=== PATIENT | male | born 1950 | race Two or more races ===

== ENCOUNTER 2016-11-16 13:31 | Day surgery (SDC) | payer OTHER ==
[~2016-11-16] VITALS: Ht 185.4 cm; Wt 82.2 kg
[~2016-11-16 13:31] MED LIST: IBUPROFEN PO
[2016-11-16 14:07] VITALS: Ht 185.4 cm; Wt 82.2 kg
[2016-11-16] MEDS ORDERED: LIDOCAINE 2% (SDV) 5 ML INJ ONE (14:53)
[2016-11-16] MEDS ORDERED: PROPOFOL 40 ML ONE (14:53)
[2016-11-16 15:28] VITALS: BP 136/80; PULSE 74; RESP 18
--- NOTE | 2016-11-16 16:26 | OPPN ---
Date/Time of Note Date/Time of Note DATE: 11/16/16 TIME: 16:25 Operative Report Preoperative Diagnosis Screening Postoperative Diagnosis Sigmoid colon polyps Internal hemorrhoids Operation/Procedure Performed Colonoscopy and biopsy Surgeon see signature line office support assistant None Anesthesia: MAC Estimated blood loss: none Transfusion Required none Specimen Sigmoid polyps Grafts/Implants none Complications none DIANA ZAMORA MD Nov 16, 2016 16:26
[2016-11-16 16:55] VITALS: BP 120/86; PULSE 67; RESP 18
--- NOTE | 2016-11-16 20:13 | GILP ---
DATE OF PROCEDURE: 11/16/2016 PREOPERATIVE DIAGNOSIS: 1. Screening colonoscopy. 2. History of colon polyps. POSTOPERATIVE DIAGNOSES: 1. Colonoscopy all the way to the cecum. 2. Small sigmoid colon polyps were removed using biopsy forceps. 3. Internal hemorrhoids. INDICATIONS FOR PROCEDURE: Mr. José Miguel Joseph is a 66-year-old male patient who had a history of colon polyps. Patient needed screening colonoscopy. The procedure and possible complications were well explained to the patient. The patient understood and consented to the procedures. DESCRIPTION OF PROCEDURE: Under the influence of anesthesia, the colonoscope was carefully introduced into the rectum. Under direct vision, it was advanced all the way to the cecum. FINDINGS: Patient had two sigmoid colon polyps and they were removed using biopsy forceps. Patient was noted to have internal hemorrhoids. He tolerated the procedure very well and there was no complication from the procedure. At the end of procedure, he was awake with stable vital signs, and he was discharged home in the care of his family. IMPRESSION: Please see postoperative diagnoses. PLAN: 1. Await histopathology report. 2. Next screening colonoscopy in five years. Dictated By: MD GEGE Gee/nathalie/katlyn /Document#: [id number]
== END 2016-11-16 17:48 | disposition home or self-care (01) ==
LOC: GIL 13:31
PROVIDERS: ATTEND Internal Medicine Gastroenterology
DX: Z12.11 Encounter for screening for malignant neoplasm of colon (principal); D12.5 Benign neoplasm of sigmoid colon; I10 Essential (primary) hypertension
CPT/HCPCS: 88305

== ENCOUNTER 2017-12-26 05:24 | Inpatient (IN) | END 2017-12-29 18:00 | disposition home or self-care (01) | DRG 517 ==